=== PATIENT | male | born 1935 | race Caucasian/White ===

== ENCOUNTER → 2016-08-01 | Outpatient (CLI) | payer MEDICARE, OTHER ==
[~2016-08-01] VITALS: Ht 175.3 cm; Wt 79.6 kg
[~2016-08-01] MED LIST: ACET-2247 PO; AMOX250C4 PO; ATOR20TA86 PO; BISA10S PR; CEPH500 PO; CHOL200018 PO; CYAN500 PO; DONE5TAB PO; DOXY100C PO; DUTA.5 PO; ESCI20TA PO; ESCI5TAB PO; FAMO20 PO; FOLI1 PO; FOLI1TAB15 PO; FURO20 PO; FURO40 PO; IPRA3AMP4 NEB; KDUR10 PO; LEFL10TA15 PO; LORA10TA7 PO; METH2.5T6 PO; METO25 PO; MOM30 PO; PANT40SU PO; RIVA15T PO; TAMS0.4C32 PO; THIA100 PO; VALS160T2 PO; VICOT
[2016-08-01 09:09] VITALS: BP 140/78
== END | disposition home or self-care (01) ==
LOC: HBOWC 08:34
PROVIDERS: ATTEND Emergency Medicine
DX: L89.892 Pressure ulcer of other site, stage 2 (principal); M06.9 Rheumatoid arthritis, unspecified; L89.322 Pressure ulcer of left buttock, stage 2; I87.2 Venous insufficiency (chronic) (peripheral); F03.90 Unspecified dementia, unspecified severity, without behavioral disturbance, psychotic disturbance, mood disturbance, and anxiety; G20 Parkinson's disease; E78.5 Hyperlipidemia, unspecified; I12.9 Hypertensive chronic kidney disease with stage 1 through stage 4 chronic kidney disease, or unspecified chronic kidney disease; N18.9 Chronic kidney disease, unspecified; Z86.718 Personal history of other venous thrombosis and embolism
CPT/HCPCS: 97597; G0463

== ENCOUNTER → 2016-08-15 | Outpatient (CLI) | payer MEDICARE, OTHER ==
[~2016-08-15] MED LIST changes: -CEPH500 PO; -ESCI5TAB PO; -FOLI1TAB15 PO; -METH2.5T6 PO; -PANT40SU PO; -VALS160T2 PO; -VICOT
[2016-08-15 09:17] VITALS: BP 131/59
== END | disposition home or self-care (01) ==
LOC: HBOWC 08:13
PROVIDERS: ATTEND Emergency Medicine
DX: L89.892 Pressure ulcer of other site, stage 2 (principal); M06.9 Rheumatoid arthritis, unspecified; I12.9 Hypertensive chronic kidney disease with stage 1 through stage 4 chronic kidney disease, or unspecified chronic kidney disease; N18.4 Chronic kidney disease, stage 4 (severe); I82.491 Acute embolism and thrombosis of other specified deep vein of right lower extremity; I73.9 Peripheral vascular disease, unspecified; B35.1 Tinea unguium; M20.42 Other hammer toe(s) (acquired), left foot; M20.41 Other hammer toe(s) (acquired), right foot; I87.2 Venous insufficiency (chronic) (peripheral); E78.5 Hyperlipidemia, unspecified; F03.90 Unspecified dementia, unspecified severity, without behavioral disturbance, psychotic disturbance, mood disturbance, and anxiety
CPT/HCPCS: 97597

== ENCOUNTER → 2016-08-29 | Outpatient (CLI) | payer MEDICARE, OTHER ==
[2016-08-29 08:59] VITALS: BP 131/56
== END | disposition home or self-care (01) ==
LOC: HBOWC 08:32
PROVIDERS: ATTEND Emergency Medicine
DX: L89.892 Pressure ulcer of other site, stage 2 (principal); L89.612 Pressure ulcer of right heel, stage 2; M06.9 Rheumatoid arthritis, unspecified; I87.2 Venous insufficiency (chronic) (peripheral); M20.42 Other hammer toe(s) (acquired), left foot; M20.41 Other hammer toe(s) (acquired), right foot; B35.1 Tinea unguium; I73.9 Peripheral vascular disease, unspecified; I12.9 Hypertensive chronic kidney disease with stage 1 through stage 4 chronic kidney disease, or unspecified chronic kidney disease; N18.4 Chronic kidney disease, stage 4 (severe); E78.5 Hyperlipidemia, unspecified; I82.4Z1 Acute embolism and thrombosis of unspecified deep veins of right distal lower extremity; F03.90 Unspecified dementia, unspecified severity, without behavioral disturbance, psychotic disturbance, mood disturbance, and anxiety
CPT/HCPCS: 97597

== ENCOUNTER → 2016-09-12 | Outpatient (CLI) | payer MEDICARE, OTHER ==
[2016-09-12 08:23] VITALS: BP 121/64
== END | disposition home or self-care (01) ==
LOC: HBOWC 07:31
PROVIDERS: ATTEND Emergency Medicine
DX: L89.892 Pressure ulcer of other site, stage 2 (principal); I87.2 Venous insufficiency (chronic) (peripheral); M06.9 Rheumatoid arthritis, unspecified; I73.9 Peripheral vascular disease, unspecified; B36.9 Superficial mycosis, unspecified; E78.5 Hyperlipidemia, unspecified; I12.9 Hypertensive chronic kidney disease with stage 1 through stage 4 chronic kidney disease, or unspecified chronic kidney disease; N18.4 Chronic kidney disease, stage 4 (severe); F32.9 Major depressive disorder, single episode, unspecified; G20 Parkinson's disease; Z86.718 Personal history of other venous thrombosis and embolism

== ENCOUNTER → 2016-09-26 | Outpatient (CLI) | payer MEDICARE, OTHER ==
[2016-09-26 09:46] VITALS: BP 130/66
== END | disposition home or self-care (01) ==
LOC: HBOWC 08:59
PROVIDERS: ATTEND Emergency Medicine
DX: L89.612 Pressure ulcer of right heel, stage 2 (principal); I87.2 Venous insufficiency (chronic) (peripheral); E78.5 Hyperlipidemia, unspecified; F32.9 Major depressive disorder, single episode, unspecified; G20 Parkinson's disease; I73.9 Peripheral vascular disease, unspecified; M06.9 Rheumatoid arthritis, unspecified; F03.90 Unspecified dementia, unspecified severity, without behavioral disturbance, psychotic disturbance, mood disturbance, and anxiety; I12.9 Hypertensive chronic kidney disease with stage 1 through stage 4 chronic kidney disease, or unspecified chronic kidney disease; N18.4 Chronic kidney disease, stage 4 (severe); B35.1 Tinea unguium; Z86.718 Personal history of other venous thrombosis and embolism
CPT/HCPCS: 97597

== ENCOUNTER → 2016-10-16 | Outpatient (CLI) | payer MEDICARE, OTHER ==
[2016-10-16 10:23] VITALS: BP 132/73
== END | disposition home or self-care (01) ==
LOC: HBOWC 09:58
PROVIDERS: ATTEND Emergency Medicine
DX: L89.619 Pressure ulcer of right heel, unspecified stage (principal); I12.9 Hypertensive chronic kidney disease with stage 1 through stage 4 chronic kidney disease, or unspecified chronic kidney disease; N18.4 Chronic kidney disease, stage 4 (severe); E78.5 Hyperlipidemia, unspecified; F32.9 Major depressive disorder, single episode, unspecified; I73.89 Other specified peripheral vascular diseases; M06.9 Rheumatoid arthritis, unspecified; B35.1 Tinea unguium; G20 Parkinson's disease; F02.80 Dementia in other diseases classified elsewhere, unspecified severity, without behavioral disturbance, psychotic disturbance, mood disturbance, and anxiety; M20.42 Other hammer toe(s) (acquired), left foot; M20.41 Other hammer toe(s) (acquired), right foot; B36.9 Superficial mycosis, unspecified; Z86.718 Personal history of other venous thrombosis and embolism